=== PATIENT | female | born 1990 ===

== ENCOUNTER 2021-10-25 11:07 | Outpatient (CLI) | payer OTHER | END 2021-10-25 12:23 | disposition home or self-care (01) | LOC: PRENATAL 11:07 | PROVIDERS: ATTEND Obstetrics & Gynecology Maternal & Fetal Medicine | DX: O35.0XX0 Maternal care for (suspected) central nervous system malformation in fetus, not applicable or unspecified (principal); O35.3XX0 Maternal care for (suspected) damage to fetus from viral disease in mother, not applicable or unspecified; Z3A.20 20 weeks gestation of pregnancy ==

== ENCOUNTER 2022-02-18 11:45 | Inpatient (IN) | payer OTHER ==
[~2022-02-18] VITALS: Ht 157.5 cm; Wt 4.1 kg
[2022-02-24] MEDS ORDERED: COMPLETE NATAL1 EACH PO (06:56)
== END 2022-02-27 14:24 | disposition home or self-care (01) | DRG 785 ==
LOC: OB/GYN 02-24 07:00 → LDR 02-24 14:07 → OB/GYN 02-24 14:07 → O/R 02-24 14:09 → OB/GYN 02-24 16:14
PROVIDERS: ADMIT Obstetrics & Gynecology; ATTEND Obstetrics & Gynecology
PROC: 0UB70ZZ Excision of Bilateral Fallopian Tubes, Open Approach (ICD-10-PCS; 2022-02-24)
PROC: 4A1HXCZ Monitoring of Products of Conception, Cardiac Rate, External Approach (ICD-10-PCS; 2022-02-24)
PROC: 10D00Z1 Extraction of Products of Conception, Low, Open Approach (ICD-10-PCS; principal; 2022-02-24 07:00)
DX: O36.63X0 Maternal care for excessive fetal growth, third trimester, not applicable or unspecified (principal); O34.211 Maternal care for low transverse scar from previous cesarean delivery; Z3A.39 39 weeks gestation of pregnancy; Z37.0 Single live birth; Z30.2 Encounter for sterilization